=== PATIENT | female | born 1950 | race Caucasian/White ===

== ENCOUNTER 2018-04-19 14:33 | Emergency (ER) | payer BC, MEDICARE ==
[2018-04-19 15:05] VITALS: BP 157/91
--- NOTE | 2018-04-19 15:53 | UC ---
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 Intensity: 0 - Allergies/Home Medications Allergies/Adverse Reactions: Allergies Allergy/AdvReac Type Severity Reaction Status Date / Time No Known Allergies Allergy Verified 04/19/18 15:06 PMH/Surg Hx/FS Hx/Imm Hx - Surgical History Surgical History: Yes Surgery Procedure, Year, and Place: 3 C-sections - Social History Alcohol Use: None Substance Use Type: None Smoking Status (MU): Never Smoked Tobacco Physical Exam Vital Signs: Initial Vital Signs Temp 99.8 F 04/19/18 15:01 Pulse 74 04/19/18 15:01 Resp 16 04/19/18 15:01 BP 157/91 04/19/18 15:01 Pulse Ox 97 04/19/18 15:01 Discharge - Discharge Plan Referrals: Sharona Solis MD [Primary Care Provider] -
[2018-04-19] MEDS ORDERED: Prochlorperazine TAB* 5 MG PO ONE (16:14)
--- NOTE | 2018-04-19 16:18 | UC ---
Nausea/Vomiting/Diarrhea HPI - HPI Summary HPI Summary: 67 y/o female presents to the urgent care c/o dry heaves w/ nausea since yesterday. Pt reports she has PMHX of anxiety and since nausea is not resolving she is getting anxious. Pt requests medication for nausea and states that Zofran PO doen't work for her. Pt requests Compazine since it worked very well when she was . Pt denies vomiting. She has been stress out lately due to personal issues. She also has a MILLS 6/10. Pt denies fever, dizziness, SOB , nasal congestion , chest pain, palpitations, abdominal pain, V/D. 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 ?: No Onset/Duration: Gradual Onset, Lasting Days - 1 day, Still Present Timing: Constant Severity Initially: Mild Severity Currently: Mild Pain Intensity: 6 - Headache Pain Scale Used: 0-10 Numeric Location: Epigastric Character: Not Applicable Aggravating Factor(s): Food Alleviating Factor(s): NPO Nausea/Vomiting Presence: None Diarrhea Presence: No - Allergies/Home Medications Allergies/Adverse Reactions: Allergies Allergy/AdvReac Type Severity Reaction Status Date / Time No Known Allergies Allergy Verified 04/19/18 15:06 PMH/Surg Hx/FS Hx/Imm Hx Previously Healthy: Yes Cardiovascular History: Hypertension - Surgical History Surgical History: Yes Surgery Procedure, Year, and Place: 3 C-sections - Family History Known Family History: Positive: Hypertension - Social History Occupation: Unemployed Alcohol Use: None Substance Use Type: None Smoking Status (MU): Never Smoked Tobacco Review of Systems Constitutional: Negative Skin: Negative Eyes: Negative ENT: Negative Respiratory: Negative Cardiovascular: Negative Gastrointestinal: Nausea Genitourinary: Negative Motor: Negative Neurovascular: Negative Musculoskeletal: Negative Neurological: Headache Psychological: Negative Is Patient Immunocompromised?: No All Other Systems Reviewed And Are Negative: Yes Physical Exam - Summary Physical Exam Summary: Vital Signs Reviewed: Yes General:Patient is a well developed and nourished female who is sitting comfortable in the examining table. Patient is not in any acute respiratory distress. Eyes: Positive: Conjunctiva Clear - PERRLA, EOMI, fundi grossly normal ENT: Positive: Normal ENT inspection, Hearing grossly normal, Pharynx normal, TMs normal Neck: Positive: Supple, Nontender, No Lymphadenopathy Respiratory: Positive: Chest non-tender, Lungs clear, Normal breath sounds, No respiratory distress Cardiovascular: Positive: RRR,S1 and S2 present, No Murmur, Pulses Normal, Brisk Capillary Refill Abdomen Description: Positive: Nontender, Other: - Abd: Flat with no distention. No surface trauma, scars, incisions. hyperactive bowel sounds present in all four quadrants. No tenderness, guarding, rigidity to palpation. No masses palpated, no pulsation in epigastric area. No organomegaly. Negative Udell signs. No periumbilical tenderness. No rebound in the lower quadrants. Good femoral pulses bilaterally. No hernia noted. No CVAT bilaterally Musculoskeletal: Positive: Strength Intact, ROM Intact, No Edema,FROM in all major joints, no edema, no cyanosis or clubbing. Neuro: Alert and oriented x 3. No acute neurological deficits. Speech is normal. Psychological: WNL Skin: Dry and warm Triage Information Reviewed: Yes Vital Signs: Initial Vital Signs Temp 99.8 F 04/19/18 15:01 Pulse 74 04/19/18 15:01 Resp 16 04/19/18 15:01 BP 157/91 04/19/18 15:01 Pulse Ox 97 04/19/18 15:01 Naus/Vom/Diarrhea Course/Dx - Course Course Of Treatment: 67 y/o female presents to the urgent care c/o dry heaves w / nausea since yesterday. Pt reports she has PMHX of anxiety and since nausea is not resolving she is getting anxious. Pt requests medication for nausea and states that Zofran PO doen't work for her. Pt requests Compazine since it worked very well when she was . Pt denies vomiting. She has been stress out lately due to personal issues. She also has a MILLS 6/10. Pt denies fever, dizziness, SOB, nasal congestion , chest pain, palpitations, abdominal pain, V/ D. Hx obtained. PE: WNL. Pt's symptoms discussed w/ Dr Oglesby agreed to give Pt Prochlorperazine maleate. At this moment we only have IM. Pt given Prochlorperazine IM inj by the nurse and Famotidine PO. Pt observed for 20 min. Pt tolerated well medication and felt better. Same medication sent to pharmacy as directed below. Pt advised to f/u w/ PCP for further management on her anxiety.Pt's BP is elevated today advised to decrease salt in diet, monitor BP and f/u with PCP for further management. D/C instructions explained. Pt understood and agreed w/ plan of care. Pt left clinic hemodynamically stable. - Differential Dx/Diagnosis Differential Diagnoses - Female: Appendicitis, Enterocolitis, Esophagitis/ Gastritis, Gerd, Gastroenteritis (Viral), Gastroenteritis (Bacterial), Vomiting , Other - anxiety Provider Diagnoses: 1- Acute Nausea. 2- Uncontrolled HTN. Is Visit Related: No Condition At Discharge: Stable Discharge - Sign-Out/Discharge Documenting (check all that apply): Patient Departure - D/c home All imaging exams completed and their final reports reviewed: Yes - Discharge Plan Condition: Stable Disposition: HOME Prescriptions: Famotidine TAB* [Pepcid 20 MG TAB*] 20 mg PO DAILY #30 tab Prochlorperazine Maleate 5 mg PO Q6HR PRN #20 tablet PRN Reason: Nausea Patient Education Materials: Acute Nausea and Vomiting (ED), Low-Sodium Diet ( ED) Referrals: Sharona Solis MD [Primary Care Provider] - 2 Days Additional Instructions: 1-Please take Prochlorperazine Maleate PO as instructed only if nausea continues . You were given IM inj of same medication. Therefore the next dose should in 6-8hrs. Increase fluid intake, eat well, rest and avoid strenuous exercise. 2- Please take Pepcid PO to alleviate GI symptoms 3-If symptoms do not improve or worsen please return to the urgent care or f/u with your PCP for further evaluation and treatment. 4-Your BP is elevated today. please decrease salt in your diet, monitor BP and if it continues to be elevated please f/u with your PCP for further management - Billing Disposition and Condition Condition: STABLE Disposition: Home
[2018-04-19] MEDS ORDERED: PROCHLORPERAZINE INJ 5 MG/ML 2 ML VIAL IM ONE (16:22)
[2018-04-19] MEDS ORDERED: Famotidine TAB* 20 MG PO ONE (16:22)
== END 2018-04-19 17:00 | disposition home or self-care (01) ==
LOC: UCEAST 14:33
DX: R11.0 Nausea (principal); I10 Essential (primary) hypertension
CPT/HCPCS: 96372; 99212; A9270-GY; G0463; J0780